=== PATIENT | male | born 1960 | race Hispanic/Latino ===

== ENCOUNTER → 2020-05-28 | Outpatient (CLI) | payer OTHER, MEDICARE ==
[2020-05-26 11:50] VITALS: BP 147/99
--- NOTE | 2020-05-26 12:05 | NUR ---
PT HERE FOR ANGIO. B/P 156/107, HR AT 76. METOPROLOL GIVEN IV PUSH TOTAL OF 40 MG WITH MINIMAL CHANGE IN HEART RATE OR PRESSURE. PT REPORTS HAVING CHRONIC PAIN TO NECK SHOULDERS AND BACK, HE DID NOT TAKE ANY PAIN OR B/P MEDS THIS AM. PROCEDURE WAS TERMINATED AND R/S TO BE DONE AT [facility] ON Tuesday05/28/20. PT WAS ADVISED TO TAKE B/P MEDS IN AM DOS WITH A SIP OF WATER AND TO TAKE PAIN MEDS WITH HIM TO APPOINTMENT.
--- NOTE | 2020-05-26 12:11 | NUR ---
UPON DISMISSAL B/P 144/93, HR 74
[~2020-05-28] MED LIST: AMIT25TA9 PO; AMLO2.5T4 PO; CANA300T PO; GABA-531 PO; HYDR-4068 PO; IOHEXOL 350 MG/ML 100ML INFUS..BTL IV ONE; LOSA100T58 PO; METH750T3 PO; METOPROLOL TARTRATE 1 MG/ML 5ML VIAL IV ONE; NEBI20TA2 PO; OMEP-272 PO; PRAV20TA4 PO; SITA1TBM4 PO
== END | disposition home or self-care (01) ==
LOC: OIH 05-26 09:04 → RAH 07:56
PROVIDERS: ATTEND Internal Medicine Cardiovascular Disease
DX: I25.10 Atherosclerotic heart disease of native coronary artery without angina pectoris (principal)
CPT/HCPCS: 75574; Q9967; J3490

== ENCOUNTER 2020-07-21 06:34 | Day surgery (SDC) | payer OTHER, MEDICARE ==
[2020-07-18 15:14] LABS: BASOPHILS % (AUTO) 0.8 % (0.0-5.0); EOSINOPHILS % (AUTO) 3.4 % (0.0-8.0); HEMATOCRIT 42.4 % (42-54); LYMPHOCYTES % (AUTO) 30.3 % (21.0-51.0); MEAN CORPUSCULAR HEMOGLOBIN 27.4 pg (27.0-33.0); MEAN CORPUSCULAR HGB CONC 32.5 g/dL (32.0-36.0); MEAN CORPUSCULAR VOLUME 84.1 fL (79-99); MONOCYTES % (AUTO) 8.7 % (3.0-13.0); NEUTROPHILS % (AUTO) 56.2 % (40.0-77.0); PLATELET COUNT (AUTO) 226 K/uL (130-400); RED BLOOD CELL COUNT(AUTO) 5.04 MIL/uL (4.50-6.20); RED CELL DISTRIBUTION WIDTH 14.2 % (11.0-15.5); WHITE BLOOD COUNT (AUTO) 9.3 K/uL (4.8-10.8)
[2020-07-18 15:15] LABS: APPEARANCE,URINE Clear (CLEAR); BILIRUBIN,URINE Negative (NEGATIVE); COLOR,URINE Yellow (YELLOW); GLUCOSE, URINE (UA) >=1000 mg/dL (NEGATIVE); KETONES,URINE Negative (NEGATIVE); LEUKOCYTE ESTERASE ,URINE Negative (NEGATIVE); NITRATE,URINE Negative (NEGATIVE); OCCULT BLOOD,URINE Negative (NEGATIVE); PROTEIN,URINE Negative (NEGATIVE)
[2020-07-18 15:28] LABS: CREATININE 1.1 mg/dL (0.5-1.5); POTASSIUM 4.8 mmol/L (3.5-5.1)
[2020-07-18 15:48] LABS: INR 1.11 (0.85-1.15); PARTIAL THROMBOPLASTIN TIME 26.1 SEC (26.3-35.5); PROTHROMBIN TIME 11.9 SEC (9.6-11.6)
[2020-07-18 15:58] LABS: BACTERIA,URINE Few /HPF (None Seen); MUCUS,URINE Few LPF (None Seen); SQUAMOUS EPITHELIAL CELL,UR Few /HPF (0-2); WBC,URINE 0-1 /HPF (0-1)
[2020-07-18 16:17] VITALS: BP 141/93
[~2020-07-21] VITALS: Ht 170.2 cm; Wt 110.7 kg
[2020-07-21] VITALS (10 sets, daily range): BP systolic 104–137; BP diastolic 60–87
[~2020-07-21 06:34] MED LIST changes: +ASPI-1197 PO; +ATOR40TA71 PO; -CANA300T PO; +CARV25TA PO; -HYDR-4068 PO; -IOHEXOL 350 MG/ML 100ML INFUS..BTL IV ONE; -METOPROLOL TARTRATE 1 MG/ML 5ML VIAL IV ONE; +MVI PO; -NEBI20TA2 PO; +PHARMACY COMMUNICATION MISC SCH; -PRAV20TA4 PO; +VITAMIN D3 PO; +[UNRECOGNIZED DRUG - OTHER] INJ
[2020-07-21] MEDS ORDERED: SODIUM CHLORIDE 0.9% 1000ML 1,000 ML IV ONE (07:28)
[2020-07-21] MEDS ORDERED: NITROGLYCERIN 2 MG/VIAL VIAL IV ONE (07:29)
[2020-07-21] MEDS ORDERED: IOHEXOL 350 MG/ML 100ML INFUS..BTL IV ONE (07:29)
[2020-07-21] MEDS ORDERED: LIDOCAINE HCL 2% 20ML ONE (07:29)
[2020-07-21] MEDS ORDERED: BIVALIRUDIN 250 MG/VIAL IV ONE (07:29)
[2020-07-21] MEDS ORDERED: IOHEXOL-350 50ML VIAL IV ONE (07:29)
[2020-07-21] MEDS ORDERED: MIDAZOLAM HCL 1 MG/ML 2ML VIAL ONE (07:29)
[2020-07-21] MEDS ORDERED: DEXTROSE 50%-WATER 50 ML DISP.SYRIN IV PRN (09:00)
[2020-07-21] MEDS ORDERED: GLUCAGON 1MG KIT 1 MG ML IM PRN (09:00)
[2020-07-21] MEDS ORDERED: SODIUM CHLORIDE 0.9% 1000ML 1,000 ML IV SCH (09:00)
--- NOTE | 2020-07-21 09:25 | NUR ---
Pt received Pt was received from [facility] via bed accompanied by GAGAN Buchanan. Pt awake but drowsy. Has perclose dressing to right groin. Site appears with no bleeding, no hematoma, no swelling noted, non tender. Pt denies any pain or discomfort. at bedside. VS wnl. Has NS at 150ml/hr as per order. Pt and made aware of fluid and bed rest orders. Verbalized understanding. Health heart diet was ordered. Call light left within reach.
[2020-07-21] MEDS ORDERED: INSULIN HUMULIN R 100 UNIT/ML 3ML SQ SCH (11:30)
--- NOTE | 2020-07-21 13:55 | NUR ---
Pt D/C Pt was prepared for discharge. Pt denies any pain. Right groin dressing site is dry and intact. No bleeding, no hematoma noted to site. Written and verbal discharge instructions were given to pt and with follow up appointment date and time. Verbalized understanding. Pt was then taken to private vehicle via wheelchair.
== END 2020-07-21 14:00 ==
LOC: DAH 06:34
PROVIDERS: ATTEND Internal Medicine Cardiovascular Disease
DX: I25.10 Atherosclerotic heart disease of native coronary artery without angina pectoris (principal); I25.5 Ischemic cardiomyopathy; I10 Essential (primary) hypertension; G47.30 Sleep apnea, unspecified; E78.5 Hyperlipidemia, unspecified; K21.9 Gastro-esophageal reflux disease without esophagitis; G25.81 Restless legs syndrome; E11.9 Type 2 diabetes mellitus without complications; Z79.82 Long term (current) use of aspirin; Z79.01 Long term (current) use of anticoagulants; Z79.899 Other long term (current) drug therapy
CPT/HCPCS: 36415; 71045; 80048; 81001; 82948 ×2; 85025; 85610; 85730; 93005; 93458; A4215; A4216; A4221; A4222; A4223 ×3; A4606; A4663; C1760; C1894 ×2; J1644; J2250; J3490 ×2; J7030 ×2; Q9965; Q9967 ×2; 99156; 99157; J0583